=== PATIENT | female | born 1955 | race Caucasian/White ===

== ENCOUNTER 2020-07-18 08:25 | Day surgery (SDC) | payer MEDICARE, BC ==
[2020-07-18] MEDS ORDERED: Propofol 200 MG/20 ML SDV ONE (08:56)
[2020-07-18] MEDS ORDERED: fentaNYL 100 MCG/2 ML SDV ONE (08:56)
[2020-07-18] MEDS ORDERED: Midazolam 1 MG/ML 2 ML SDV ONE (08:56)
[2020-07-18] MEDS ORDERED: Dextrose 5%-Lactated Ringers 1,000 ML IV SCH (09:00)
[2020-07-18 11:45] VITALS: BP 132/78; PULSE 55
--- NOTE | 2020-08-04 13:26 | OR ---
DATE OF PROCEDURE: 07/18/2020 SURGEON: Max Negro MD PREOPERATIVE DIAGNOSIS: Family history of colon carcinoma. POSTOPERATIVE DIAGNOSES: 1. Family history of colon carcinoma. 2. Elongated sessile polyp in the mid transverse colon and tiny sessile polyp in the mid transverse colon. OPERATIVE PROCEDURE: Flexible colonoscopy with polypectomy by snare technique x2. ANESTHESIA: IV sedation. INDICATIONS FOR PROCEDURE: The patient presents for screening colonoscopy with family history of colon carcinoma. Plan is to proceed with a colonoscopy with biopsies and/or polypectomy as indicated. Potential risks of the procedure including bleeding and perforation were discussed, and the patient wishes to proceed. DETAILS OF PROCEDURE: The patient was taken to the operating room, placed in a left lateral decubitus position. IV sedation was administered, after which the initial digital rectal exam was performed, which was unremarkable. Colonoscope was then passed into the rectum with retroflexion revealing uncomplicated hemorrhoidal columns. Scope was eventually passed to the level of the cecum. The prep was quite good with only small amount of liquid stool present. To that level, the patient was noted to have diverticular disease. No areas of colitis. The patient did have a fairly elongated sessile polyp in the mid transverse colon. This was removed by means of cautery snare technique in 3 separate pieces, and the tiny sessile polyp distal to that was also present and was removed by means of a snare technique. No additional pathology was seen. Good hemostasis at the polypectomy site was confirmed and the procedure was then concluded. Recommendation for repeat colonoscopy in 2 years depending on the pathology report. We will contact the patient regarding the pathology findings and appropriate level of a followup. Max Negro MD /[id number]
== END 2020-07-18 12:00 | disposition home or self-care (01) ==
LOC: JP.SDS 08:25
PROVIDERS: ATTEND Surgery
DX: Z12.11 Encounter for screening for malignant neoplasm of colon (principal); D12.3 Benign neoplasm of transverse colon; K57.30 Diverticulosis of large intestine without perforation or abscess without bleeding; K64.9 Unspecified hemorrhoids; E11.22 Type 2 diabetes mellitus with diabetic chronic kidney disease; N18.9 Chronic kidney disease, unspecified; Z80.0 Family history of malignant neoplasm of digestive organs
CPT/HCPCS: 45385; 88305; J2250; J2704; J3010; J7121

== ENCOUNTER 2021-08-28 17:09 | Emergency (ER) | payer MEDICARE, BC ==
[2021-08-28 18:55] LABS: ESTIMATED GFR 38 mL/min (>60)
[2021-08-28] MEDS ORDERED: Sodium Chloride 0.9% 1,000 ML IV SCH (19:00)
[2021-08-28 19:36] VITALS: BP 127/69; PULSE 78
== END 2021-08-28 21:00 | disposition home or self-care (01) ==
LOC: JP.ED 17:09
DX: R55 Syncope and collapse (principal); E86.0 Dehydration; M79.81 Nontraumatic hematoma of soft tissue; Z91.048 Other nonmedicinal substance allergy status; Z88.8 Allergy status to other drugs, medicaments and biological substances; Z86.16 Personal history of COVID-19
CPT/HCPCS: 36415; 80053; 81001; 84484; 85025; 93005; 93010; 96360; 99282; 99284-25; J7030

== ENCOUNTER 2022-01-10 17:47 | Emergency (ER) | payer MEDICARE, BC ==
[2022-01-10] MEDS ORDERED: Sodium Chloride 0.9% 10 ML Syringe FLUSH PRN (18:08)
[2022-01-10] MEDS ORDERED: Prochlorperazine 10 MG/2 ML SDV IVPUSH ONE (18:08)
[2022-01-10] MEDS ORDERED: Sodium Chloride 0.9% 10 ML Syringe FLUSH ONE (18:14)
[2022-01-10] MEDS ORDERED: Sodium Chloride 0.9% 50 ML IV SCH (18:15)
[2022-01-10] MEDS ORDERED: Iopamidol 612 MG/ML 100 ML Bottle IV SCH (18:15)
[2022-01-10] MEDS ORDERED: Sodium Chloride 0.9% 1,000 ML IV SCH (18:15)
[2022-01-10 18:30] LABS: ESTIMATED GFR 31 mL/min (>60)
[2022-01-10 21:06] LABS: CORONAVIRUS COVID-19 NAA NEGATIVE (NEGATIVE)
[2022-01-10] MEDS ORDERED: Ondansetron 4 MG/2 ML SDV IVPUSH ONE (21:33)
[2022-01-10 22:04] VITALS: BP 132/52; PULSE 107
== END 2022-01-10 22:04 ==
LOC: JP.ED 17:47
DX: E86.0 Dehydration (principal); C54.1 Malignant neoplasm of endometrium; N93.9 Abnormal uterine and vaginal bleeding, unspecified; D62 Acute posthemorrhagic anemia; E11.9 Type 2 diabetes mellitus without complications; Z88.5 Allergy status to narcotic agent; Z91.048 Other nonmedicinal substance allergy status; Z79.899 Other long term (current) drug therapy; Z20.822 Contact with and (suspected) exposure to COVID-19
CPT/HCPCS: 0241U; 36415; 36430; 71260; 74177; 80053; 81001; 85025; 86850; 86900; 86901; 86920; 86922; 96361; 96374; 96375; 99285; J0780; J2405; J3490; J7030; P9016; Q9967